=== PATIENT | female | born 1955 | race Caucasian/White ===

== ENCOUNTER 2024-12-11 08:04 | Day surgery (SDC) | payer MEDICARE, MEDICAID ==
[~2024-12-11] VITALS: Ht 160 cm; Wt 80.7 kg
[2024-12-11] VITALS (9 sets, daily range): BP systolic 132–178; BP diastolic 73–96; PULSE 58–74; RESP 10–16; TEMP 97.8; O2SAT 92–98
[2024-12-11 09:04] LABS: BASOPHILS # (AUTO) 0.1 X10'3 (0-0.2); BASOPHILS % (AUTO) 0.8 % (0-1); EOSINOPHILS # (AUTO) 0.1 X10'3 (0-0.9); HEMATOCRIT 40.5 % (35.0-45.0); HEMOGLOBIN 13.5 g/dl (12.0-16.0); LYMPHOCYTES # (AUTO) 3.2 X10'3 (1.1-4.8); LYMPHOCYTES % (AUTO) 44.6 % (21-51); MEAN CORPUSCULAR HEMOGLOBIN 31.5 PG (27.0-31.0); MEAN CORPUSCULAR HGB CONC 33.5 g/dL (33.0-36.5); MEAN CORPUSCULAR VOLUME 94.2 FL (78-98); MEAN PLATELET VOLUME 7.1 FL (7.4-10.4); MONOCYTES # (AUTO) 0.6 X10'3 (0-0.9); MONOCYTES % (AUTO) 7.7 % (2-12); NEUTROPHILS # (AUTO) 3.3 X10'3 (1.8-7.7); NEUTROPHILS % (AUTO) 44.9 % (42-75); PLATELET COUNT 202 X10'3 (140-440); RED CELL DISTRIBUTION WIDTH 12.6 % (11.5-14.5); WHITE BLOOD COUNT 7.3 X10'3 (4.5-11.0)
[2024-12-11] MEDS ORDERED: VALS160T30 PO (09:05)
[2024-12-11] MEDS ORDERED: CYAN-50 PO (09:05)
[2024-12-11] MEDS ORDERED: PIOG45TA65 PO (09:05)
[2024-12-11] MEDS ORDERED: METO-395 PO (09:05)
[2024-12-11] MEDS ORDERED: TIZA-205 PO (09:05)
[2024-12-11] MEDS ORDERED: NIFE-34 PO (09:05)
[2024-12-11] MEDS ORDERED: OXYC1TAB17 PO (09:05)
[2024-12-11] MEDS ORDERED: GLIP-299 PO (09:05)
[2024-12-11] MEDS ORDERED: FAMO-289 PO (09:05)
[2024-12-11] MEDS ORDERED: CLON0.2T PO (09:05)
[2024-12-11] MEDS ORDERED: PROM25TA14 PO (09:05)
[2024-12-11 09:12] LABS: ALBUMIN 3.5 G/DL (3.4-5.0); ANION GAP 6 (8-16); BLOOD UREA NITROGEN 10 MG/DL (7-18); BUN/CREATININE RATIO 11.8 (10.0-20.0); CALCIUM 8.9 MG/DL (8.5-10.1); CHLORIDE 101 MMOL/L (99-107); CREATININE 0.85 MG/DL (0.40-0.90); GLUCOSE 195 MG/DL (70-104); MAGNESIUM 1.9 MG/DL (1.5-2.4); POTASSIUM 4.2 MMOL/L (3.5-5.1); SODIUM 136 MMOL/L (135-145); TOTAL CARBON DIOXIDE 29.1 MMOL/L (24-32); eCRCL 52 ML/MIN; eGFR 66 ML/MIN
[2024-12-11 09:17] LABS: INR 1.1 INR
[2024-12-11] MEDS: normal saline 1,000 ML IV SCH (10:15)
[2024-12-11] MEDS: sodium bicarbonate 1meq/ml syr 150 ML in dextrose 5%-water 1,000 ML IV ONE (10:15)
[2024-12-11] MEDS: diphenhydrAMINE 25mg capsule PO PRN (10:16)
[2024-12-11] MEDS ORDERED: fentaNYL/PF 50MCG/1 ML 2ML syringe ONE (12:53)
[2024-12-11] MEDS ORDERED: LIDOcaine 1% 30ml preserv. free vial ONE (12:53)
[2024-12-11] MEDS ORDERED: iohexol 350MG/ML 100ml bottle IV ONE (12:53)
[2024-12-11] MEDS ORDERED: midazolam 1 mg/ML 2ml injection ONE ×3 (12:53→13:44)
[2024-12-11] MEDS ORDERED: HYDROmorphone 1 mg/ml syringe ONE (13:37)
[2024-12-11] MEDS ORDERED: proCHLORperazine 10 MG/2 ml inj IV PRN (14:25)
[2024-12-11] MEDS ORDERED: HYDROcodone/acetaminophen 5mg/325mg tablet PO PRN (14:25)
[2024-12-11] MEDS ORDERED: ondansetron/PF 4mg/2ml inj IV PRN (14:25)
[2024-12-11] MEDS ORDERED: MINO2.5T19 PO (14:29)
[2024-12-11] MEDS: HYDROcodone/acetaminophen 10/325mg tab PO PRN (15:32)
== END 2024-12-11 17:10 | disposition home or self-care (01) ==
LOC: SSTAY O 08:04
PROVIDERS: ATTEND Internal Medicine Cardiovascular Disease
DX: I15.0 Renovascular hypertension (principal); I10 Essential (primary) hypertension; R55 Syncope and collapse; E78.5 Hyperlipidemia, unspecified; K21.9 Gastro-esophageal reflux disease without esophagitis; E11.9 Type 2 diabetes mellitus without complications; Z95.9 Presence of cardiac and vascular implant and graft, unspecified; Z98.890 Other specified postprocedural states; Z79.899 Other long term (current) drug therapy
CPT/HCPCS: 36252; 36415; 80048; 82948; 83735; 85025; 85610; 93005; A6258; C1760; C1894; J1171; J1644; J2003; J2250; J3010; J3490; J7030; J7070; Q0163; Q9967; Z7610; 99152; 99153